=== PATIENT | female | born 1940 | race Caucasian/White ===

== ENCOUNTER 2019-01-07 11:50 | Outpatient (CLI) | payer MEDICARE ==
--- NOTE | 2019-01-07 18:30 | RAD ---
LUMBAR SPINE THREE VIEWS 01/07/19 The patient is osteoporotic and this decreases the sensitivity of this exam quite a bit. There may be some slight wedging of T11 and/or T12, but I cannot be 100% certain, as this area is not seen except ionally well. Scoliosis is present, convexed right with degenerative changes present at all levels. Grade I spondylolisthesis of L4 on L5 is noted, apparently due to facet arthritis. Disc space narrowi ng is seen at L2-L3. SI joints are reasonably symmetrical, though not seen optimally. The abdominal a lashell is calcified, as are the iliac arteries. IMPRESSION: Low sensitivity study showin. Prominent scoliosis with marked degenerative change. 2. Spondylolisthesis of L4 on L5. 3. Degenerated disc disease at L2-L3. 4. Possible slight compressions of T11 and T12. Area not seen adequately. POS: HOME
== END 2019-01-07 11:51 | disposition home or self-care (01) ==
LOC: BURRAD 11:50
PROVIDERS: ATTEND Family Medicine
DX: M54.5 Low back pain (principal); M47.816 Spondylosis without myelopathy or radiculopathy, lumbar region; M43.16 Spondylolisthesis, lumbar region; M51.36 Other intervertebral disc degeneration, lumbar region; M41.9 Scoliosis, unspecified
CPT/HCPCS: 72100

== ENCOUNTER 2019-01-27 00:56 | Emergency (ER) | payer MEDICARE, OTHER ==
[2019-01-27 01:40] LABS: Hemoglobin 12.3 g/dL (12.0-16.0); Mean Corpuscular HGB CONC 31.5 g/dL (32.0-36.0); Mean Corpuscular Hemoglobin 27.7 pg (27.0-31.0); Mean Corpuscular Volume 87.7 fL (78.0-98.0); Mean Platelet Volume 7.9 fL (7.4-10.4); Platelet Count 168 thou/uL (130-400); Red Blood Cell (RBC) Count 4.45 mill/uL (4.20-5.40); White Blood Cell (WBC) Count 5.7 thou/uL (4.8-10.8)
[2019-01-27 01:47] LABS: ALT (SGPT) 14 U/L (8-55); AST (SGOT) 16 U/L (5-34); Albumin 4.1 g/dL (3.4-4.8); Alkaline Phosphatase 64 U/L (40-150); Anion Gap 13 mmol/L (10-20); BUN (Urea Nitrogen) 21 mg/dL (9.8-20.1); Bilirubin, Total 0.4 mg/dL (0.2-1.2); Calc. Creatinine Clearance 0 mL/min (70-130); Calcium 9.2 mg/dL (7.8-10.44); Carbon Dioxide 27 mmol/L (23-31); Chloride 107 mmol/L (98-107); Estimated GFR-MDRD 67; Globulin 2.7 g/dL (2.4-3.5); Glucose 111 mg/dL (83-110); Potassium 4.2 mmol/L (3.5-5.1); Protein, Total 6.8 g/dL (6.0-8.3); Sodium 143 mmol/L (136-145)
[2019-01-27 01:57] LABS: Eosinophils 4 % (0-10); Lymphocytes 25 % (21-51); MDiff Complete? YES; Monocytes 9 % (0-10); Neutrophil 55 % (42-75); Platelet Morphology Comment Appears Adequate; Prothrombin Time 24.2 SEC (12.0-14.7); RBC Morphology Normal; Reactive Lymphocytes 6 % (0-10)
[2019-01-27 01:58] LABS: D-Dimer Test Less than 0.27 *mcg/mL (0.27-0.43); INR-International Normal Ratio 2.2; PTT 41.1 SEC (22.9-36.1)
[2019-01-27] MEDS ORDERED: cloNIDine 0.1 MG TAB ONE (02:14)
--- NOTE | 2019-01-27 07:50 | RAD ---
PORTABLE CHEST: Date: 01/27/19 AP portable film at 0051 hours shows mild cardiomegaly. Median sternotomy sutures are seen from prior surgery. There is some mild prominence of the vasculature. The right hilum is prominent in size. I c annot rule out pathology here. An elective CT or perhaps comparison with prior films is needed if the latter can be obtained. No lobar consolidations or effusions were seen. IMPRESSION: 1. Cardiomegaly with slight congestion of the vessels. 2. Enlarged right hilum. Further workup required, whether it be an elective CT or comparison with [place] older films (which I do not currently have). CODE T. POS: HOME
== END 2019-01-27 02:26 | disposition home or self-care (01) ==
LOC: BURERS 00:56
DX: I10 Essential (primary) hypertension (principal); Z79.899 Other long term (current) drug therapy; Z79.01 Long term (current) use of anticoagulants
CPT/HCPCS: 71045; 80053; 83880; 84484; 85025; 85379; 85610; 85730; 93005; 94760